=== PATIENT | female | born 1960 | race American Indian/Alaskan Native ===

== ENCOUNTER 2018-04-11 19:15 | Emergency (ER) | payer SELFPAY ==
[2018-04-11 19:54] VITALS: BP 146/88
[2018-04-11] MEDS ORDERED: NACL 0.9% 1000 ML 1,000 ML IV ONE (19:54)
[2018-04-11 20:39] LABS: Basophils % (Auto) 0.5 % (0.0-1.8); Eosinophils # (Auto) 0.3 K/mm3 (0.0-0.4); Eosinophils % (Auto) 2.9 % (0.0-4.3); Hematocrit 40.7 % (30.3-42.9); Hemoglobin 13.5 gm/dl (10.1-14.3); Lymphocytes # (Auto) 2.9 K/mm3 (1.2-5.4); Lymphocytes % (Auto) 31.8 % (13.4-35.0); Mean Corpuscular HGB Conc 33 % (30-34); Mean Corpuscular Volume 87 fl (79-97); Monocytes # (Auto) 0.5 K/mm3 (0.0-0.8); Monocytes % (Auto) 5.9 % (0.0-7.3); Platelet Count 256 K/mm3 (140-440); Red Blood Count 4.68 M/mm3 (3.65-5.03); Red Cell Distribution Width 13.4 % (13.2-15.2)
[2018-04-11 20:51] LABS: Bilirubin,Urine NEG (Negative); Blood,Urine NEG (Negative); Color,Urine Straw (Yellow); Protein,Urine <15 mg/dL mg/dL (Negative); Urobilinogen,Urine < 2.0 mg/dL (<2.0)
[2018-04-11 20:51] LABS: Alanine Aminotransferase 12 units/L (7-56); BUN/Creatinine Ratio 18; Blood Urea Nitrogen 14 mg/dL (7-17); Calcium 9.3 mg/dL (8.4-10.2); Hemolysis Index 15
[2018-04-12] MEDS ORDERED: ZOFRAN IV ONE (02:27)
[2018-04-12] MEDS ORDERED: NACL 0.9% 1000 ML 1,000 ML IV ONE (02:27)
[2018-04-12] MEDS ORDERED: TORADOL IV ONE (02:27)
--- NOTE | 2018-04-12 04:02 | Emergency Department Report ---
ED Abdominal Pain HPI - General Chief Complaint: Abdominal Pain Stated Complaint: UPPER STOMACH PAIN Time Seen by Provider: 04/12/18 02:26 Source: patient Mode of arrival: Ambulatory Limitations: No Limitations - History of Present Illness Initial Comments: Patient is a 58 -year-old female who presents for left flank pain radiating from left upper quadrant for the past 5 months patient followed by GI followed by PCP advised that she has costochondritis however now pain is exacerbated by voiding there is no fever no chills no hematuria patient does endorse frequency urgency there is no vaginal discharge or bladder incontinence is been no nausea vomiting symptoms are relieved by narcotic pain medicines symptoms are exacerbated by voiding movement bending twisting. MD Complaint: abdominal pain, flank pain Onset/Timin -: week(s), unknown (x 5 months recurring ) Location: L flank Radiation: LUQ Migration to: no migration, L flank Severity: moderate Severity scale (0 -10): 5 Quality: aching, sharp Consistency: constant Improves With: nothing Worsens With: other (voiding bending twisting ) Associated Symptoms: dysuria. denies: nausea, vomiting, diarrhea, fever, chills, constipation, hematemesis, hematochezia, melena, hematuria, anorexia, syncope - Related Data LMP (females 10-50): other (s/p menopausal) Previous Rx's Medication Instructions Recorded Last Taken Type Ciprofloxacin HCl [Cipro] 500 mg PO BID #20 tablet 04/12/18 Unknown Rx Omeprazole 40 mg PO DAILY #30 capsule. 04/12/18 Unknown Rx metroNIDAZOLE [Flagyl] 500 mg PO BID 10 Days #20 tab 04/12/18 Unknown Rx traMADol [Ultram] 50 mg PO Q6HR PRN #12 tablet 04/12/18 Unknown Rx Allergies Allergy/AdvReac Type Severity Reaction Status Date / Time No Known Allergies Allergy Verified 04/12/18 03:37 ED Review of Systems ROS: Stated complaint: UPPER STOMACH PAIN Other details as noted in HPI Constitutional: denies: chills, fever Eyes: denies: eye pain, eye discharge, vision change ENT: denies: ear pain, throat pain Respiratory: denies: cough, shortness of breath, wheezing Cardiovascular: denies: chest pain, palpitations Endocrine: no symptoms reported Gastrointestinal: abdominal pain (LUQ ). denies: nausea, vomiting, diarrhea, constipation, hematemesis, melena, hematochezia Genitourinary: urgency, dysuria, frequency. denies: hematuria, discharge, abnormal menses Musculoskeletal: denies: back pain, joint swelling, arthralgia Skin: denies: rash, lesions Neurological: denies: headache, weakness, paresthesias Psychiatric: denies: anxiety, depression Hematological/Lymphatic: denies: easy bleeding, easy bruising ED Past Medical Hx - Past Medical History Previous Medical History?: No - Surgical History Additional Surgical History: hysterectomy - Social History Smoking Status: Never Smoker Substance Use Type: None - Medications Home Medications: Home Medications Medication Instructions Recorded Confirmed Last Taken Type Ciprofloxacin HCl [Cipro] 500 mg PO BID #20 tablet 04/12/18 Unknown Rx Omeprazole 40 mg PO DAILY #30 capsule.dr 04/12/18 Unknown Rx metroNIDAZOLE [Flagyl] 500 mg PO BID 10 Days #20 tab 04/12/18 Unknown Rx traMADol [Ultram] 50 mg PO Q6HR PRN #12 tablet 04/12/18 Unknown Rx ED Physical Exam - General Limitations: No Limitations General appearance: alert, in no apparent distress - Head Head exam: Present: atraumatic, normocephalic - Eye Eye exam: Present: normal appearance, PERRL, EOMI - ENT ENT exam: Present: mucous membranes moist - Neck Neck exam: Present: normal inspection, full ROM. Absent: tenderness, lymphadenopathy, thyromegaly - Respiratory Respiratory exam: Present: normal lung sounds bilaterally. Absent: respiratory distress, wheezes, stridor, chest wall tenderness - Cardiovascular Cardiovascular Exam: Present: regular rate, normal rhythm, normal heart sounds. Absent: systolic murmur, diastolic murmur, rubs, gallop - GI/Abdominal GI/Abdominal exam: Present: soft, tenderness (LUQ ), normal bowel sounds. Abse nt: distended, guarding, rebound, rigid, organomegaly, bruit, hernia - Rectal Rectal exam: Present: deferred - External exam: Present: normal external exam, other (exam deferred ) - Extremities Exam Extremities exam: Present: normal inspection - Back Exam Back exam: Present: normal inspection, full ROM. Absent: tenderness, CVA tenderness (R), CVA tenderness (L), muscle spasm, rash noted - Neurological Exam Neurological exam: Present: alert, oriented X3, CN II-XII intact, normal gait - Psychiatric Psychiatric exam: Present: normal affect, normal mood - Skin Skin exam: Present: warm, dry, intact, normal color. Absent: rash ED Course Vital Signs 04/11/18 04/12/18 19:49 03:38 Temperature 97.9 F Pulse Rate 101 H Respiratory 18 20 Rate Blood Pressure 146/88 O2 Sat by Pulse 99 Oximetry ED Medical Decision Making - Lab Data Result diagrams: 04/11/18 20:01 04/11/18 20:01 Labs 04/11/18 04/11/18 04/11/18 20:01 20:01 20:20 WBC 9.2 RBC 4.68 Hgb 13.5 Hct 40.7 MCV 87 MCH 29 MCHC 33 RDW 13.4 Plt Count 256 Lymph % (Auto) 31.8 [place] % (Auto) 5.9 Eos % (Auto) 2.9 Baso % (Auto) 0.5 Lymph # 2.9 [place] # 0.5 Eos # 0.3 Baso # 0.0 Seg Neutrophils % 58.9 Seg Neutrophils # 5.4 Sodium 139 Potassium 4.1 Chloride 98.7 Carbon Dioxide 29 Anion Gap 15 BUN 14 Creatinine 0.8 Estimated GFR > 60 BUN/Creatinine Ratio 18 Glucose 191 H Calcium 9.3 Total Bilirubin 0.60 AST 11 ALT 12 Alkaline Phosphatase 72 Total Protein 7.4 Albumin 4.0 Albumin/Globulin Ratio 1.2 Lipase 65 H Urine Color Straw Urine Turbidity Clear Urine pH 6.0 Ur Specific [place] 1.025 Urine Protein <15 mg/dl Urine Glucose (UA) >=500 Urine Ketones Neg Urine Blood Neg Urine Nitrite Neg Urine Bilirubin Neg Urine Urobilinogen < 2.0 Ur Leukocyte Esterase Lg Urine WBC (Auto) 121.0 H Urine RBC (Auto) 8.0 - Radiology Data Radiology results: report reviewed, image reviewed FINAL REPORT PROCEDURE: CT ABDOMEN PELVIS WO CON TECHNIQUE: Computerized axial tomography of the abdomen and pelvis was performed without intravenous contrast. This study is performed without intravascular contrast mat erial and its sensitivity for abdominal and pelvic pathology, including neoplasms, inflammation, abscess, free fluid, thrombosis, arterial dissection and infarction, is reduced compared with a contrast enhanced study. HISTORY: left flank pain COMPARISON: No prior studies are available for comparison. FINDINGS: Visualized lower thorax: No significant abnormality. Liver: Normal size and attenuation. Spleen: Normal size and attenuation. Gallbladder and biliary system: Normal. Pancreas: Normal. Adrenals: Normal. Kidneys: There are multiple cysts in the left kidney measuring up to 4 centimeters. There are no kidney stones or ureteral stones. There is no hydronephrosis.. GI tract: There is no bowel obstruction, colitis or enteritis. There are diverticula of the sigmoid and left colon. The appendix is normal.. Lymph nodes and mesentery: Normal. Vasculature: Normal. Bladder: Normal. Reproductive organs: There has been a hysterectomy. Peritoneum: There is no ascites or free air, abscess or adenopathy.. Musculoskeletal structures: No significant abnormality. Other: None. IMPRESSION: There are multiple cysts in the left kidney measuring up to 4 centimeters. There are no kidney stones or ureteral stones. There is no hydronephrosis.. There is no bowel obstruction, colitis or enteritis. There are diverticula of the sigmoid and left colon. The appendix is normal.. There has been a hysterectomy. There is no ascites or free air, abscess or adenopathy.. . Transcribed By: CO Dictated By: LEIGHTON RESENDIZ MD Electronically Authenticated By: LEIGHTON RESENDIZ MD Signed Date/Time: 04/12/18421 DD/ 9 TD/TT: 04/12/18419 - Medical Decision Making CT abd and pelvis: pos for renal cyst bilat, diverticula in sigmoid and left colon no diverticulitis , urine : pos for wbc, leuk, plan: rocepin 1gm ivpb, dc to home with cipro and flagyl, omeprazole, ultram prn pain pt will follow up with pcp in 2-3 days follow up with GI will call today to confirm apt with [facility] as she has been seen by them in past pain is now improved, pt is tolerating po intake without n/v no there is no fever or chills, pt for dc to home in stable condition at this time. Critical care attestation.: If time is entered above; I have spent that time in minutes in the direct care of this critically ill patient, excluding procedure time. ED Disposition Clinical Impression: Renal cyst UTI (urinary tract infection) Qualifiers: Urinary tract infection type: acute cystitis Hematuria presence: without hematuria Qualified Code(s): N30.00 - Acute cystitis without hematuria Abdominal pain Qualifiers: Abdominal location: left upper quadrant Qualified Code(s): R10.12 - Left upper quadrant pain Diverticulosis Qualifiers: Diverticulosis site: diverticulosis of large intestine Diverticulosis bleeding: diverticulosis without bleeding Qualified Code(s): K57.30 - Diverticulosis of large intestine without perforation or abscess without bleeding Disposition: TO HOME OR SELFCARE Is pt being admited?: No Does the pt Need Aspirin: No (will likely only I will undergo I) Condition: Stable Instructions: Abdominal Pain (ED), Diverticulosis Diet (ED), Diverticulosis (ED), Urinary Tract Infection in Women (ED), Flank Pain (ED) Prescriptions: Ciprofloxacin HCl [Cipro] 500 mg PO BID #20 tablet metroNIDAZOLE [Flagyl] 500 mg PO BID 10 Days #20 tab Omeprazole 40 mg PO DAILY #30 capsule. traMADol [Ultram] 50 mg PO Q6HR PRN #12 tablet PRN Reason: Pain Referrals: VÍCTOR VICTOR MD [Staff Physician] - 3-5 Days [facility] [Outside] - 3-5 Days RICARDA MACEDO MD [Staff Physician] - 3-5 Days Forms: Work/School Release Form(ED) Time of Disposition: 05:40
[2018-04-12] MEDS ORDERED: ROCEPHIN/NS 1 GM/50 ML 1 GM/50 ML BAG IV ONE (04:15)
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
[2018-04-12] MEDS ORDERED: NORCO 5/325 ONE (06:06)
[2018-04-12] MEDS ORDERED: NORCO 5/325 PO ONE (06:06)
== END 2018-04-12 06:12 | disposition home or self-care (01) ==
LOC: ED 19:15
DX: N30.00 Acute cystitis without hematuria (principal); K57.30 Diverticulosis of large intestine without perforation or abscess without bleeding; N28.1 Cyst of kidney, acquired; Z90.710 Acquired absence of both cervix and uterus
CPT/HCPCS: 36415; 74176; 80053; 81001; 83690; 85025; 96365; 96375; 99284; J0696; J1885; J2405; J7030

== ENCOUNTER 2018-12-19 14:52 | Emergency (ER) | payer SELFPAY ==
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
[2018-12-19] MEDS ORDERED: NORCO 5/325 PO ONE (17:18)
[2018-12-19] MEDS ORDERED: FIORICET PO ONE (17:18)
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
[2018-12-19] MEDS ORDERED: ROBAXIN PO ONE (18:00)
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
[2018-12-19 20:03] VITALS: BP 154/99
== END 2018-12-19 20:18 | disposition home or self-care (01) ==
LOC: ED 14:52
DX: M54.2 Cervicalgia (principal); R51 Headache; R11.0 Nausea; I10 Essential (primary) hypertension; Z90.710 Acquired absence of both cervix and uterus; Z79.899 Other long term (current) drug therapy; V49.49XA Driver injured in collision with other motor vehicles in traffic accident, initial encounter; Y93.89 Activity, other specified; Y92.410 Unspecified street and highway as the place of occurrence of the external cause; Y99.8 Other external cause status
CPT/HCPCS: 70450; 72040; 72100; 74018